=== PATIENT | male | born 2000 | race Hispanic/Latino ===

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

== ENCOUNTER 2022-10-11 21:59 | Emergency (ER) | payer OTHER ==
[2022-10-11] MEDS ORDERED: Acetaminophen 500 MG TAB ONE (22:54)
== END 2022-10-12 00:15 | disposition home or self-care (01) ==
LOC: ERS 21:59
DX: B34.9 Viral infection, unspecified (principal); Z20.822 Contact with and (suspected) exposure to COVID-19
CPT/HCPCS: 87804; 99283; U0003; U0005